=== PATIENT | male | born 1965 | race African-American/Black ===

== ENCOUNTER 2020-01-01 15:12 | Inpatient (IN) | payer SELFPAY ==
[~2020-01-01 15:12] MED LIST: Dexamethasone 20 MG/5 ML VIAL ONE; Fentanyl 250 MCG/5 ML VIAL ONE; Glycopyrrolate 0.2 MG/ML 5 ML SYRINGE ONE; Heparin 5,000 UNITS/ML VIAL ONE; Lidocaine 1% PF 5 ML VIAL ONE; Midazolam HCl 2 mg/2 ml Vial ONE; PROPOFOL 200 MG/20 ML VIAL ONE; Phenylephrine 10 MG/ML VIAL ONE; Protamine Sulfate 50 MG/5 ML VIAL ONE; Rocuronium Bromide 10 MG/ML (10ML VIAL) ONE; Succinylcholine Chloride 20 MG/ML 10 ml SYRINGE FS ONE
[2020-01-01] MEDS ORDERED: Bupivacaine HCl 0.5%/Epinephrine 1:200,000/PF 30 ml Vial ONE (15:41)
[2020-01-01] MEDS ORDERED: SUGAMMADEX SODIUM 200 MG/2 ML VIAL ONE (16:25)
[2020-01-01] MEDS ORDERED: Ondansetron HCl/PF 4 MG/2 ML Vial IVP PRN (16:38)
[2020-01-01] MEDS ORDERED: Labetalol HCl 100 MG/20 ML VIAL ONE (16:43)
[2020-01-01] MEDS ORDERED: Fentanyl 100 MCG/2 ML VIAL ONE ×2 (16:53→17:12)
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
[2020-01-01] MEDS ORDERED: HYDROcodone/Acetaminophen 5/325 mg Tablet PO PRN (18:03)
[2020-01-01] MEDS ORDERED: traMADol HCl 50 MG TAB PO PRN ×2 (18:03)
[2020-01-01] MEDS ORDERED: Fentanyl 100 MCG/2 ML VIAL SLOW IVP PRN (18:03)
[2020-01-01 18:06] VITALS: BMI 33.7
[2020-01-01] MEDS: HYDROcodone/Acetaminophen 5/325 mg Tablet PO PRN (18:24)
[2020-01-01] MEDS: Sodium Chloride 0.9% 1,000 ML IV SCH (18:26)
[2020-01-02] MEDS: Sodium Chloride 0.9% 1,000 ML IV SCH (02:08)
[2020-01-02 03:11] LABS: #Lymphocytes 0.9 thou/uL (1.20-3.40); #Neutrophils 9.5 thou/uL (1.40-6.50); %Lymphocytes 7.8 % (21.0-51.0); %Monocytes 8.8 % (0.0-10.0); %Neutrophils 83.4 % (42.0-75.0); Mean Corpuscular HGB CONC 34.1 g/dL (32.0-36.0); Mean Corpuscular Hemoglobin 31.7 pg (27.0-31.0); Mean Platelet Volume 7.3 fL (7.4-10.4); Platelet Count 248 thou/uL (130-400); RBC Distribution Width 12.6 % (11.5-14.5); Red Blood Cell (RBC) Count 4.09 mill/uL (4.70-6.10); White Blood Cell (WBC) Count 11.4 thou/uL (4.8-10.8)
[2020-01-02] MEDS: HYDROcodone/Acetaminophen 5/325 mg Tablet PO PRN (06:14)
[2020-01-02 07:14] VITALS: TEMP 97.6
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
== END 2020-01-02 08:18 | disposition home or self-care (01) | DRG 908 ==
LOC: ERS 15:12 → SDC 15:24 → CCU 18:03
PROVIDERS: ADMIT Thoracic Surgery (Cardiothoracic Vascular Surgery); ATTEND Thoracic Surgery (Cardiothoracic Vascular Surgery)
PROC: 03Q Upper Arteries, Repair (ICD-10-PCS; principal; 2020-01-01)
PROC: 05QN0ZZ Repair Left Internal Jugular Vein, Open Approach (ICD-10-PCS; 2020-01-01)
DX: S15.002A Unspecified injury of left carotid artery, initial encounter (principal); S15.302A Unspecified injury of left internal jugular vein, initial encounter; W26.9XXA Contact with unspecified sharp object(s), initial encounter
CPT/HCPCS: 36415; 71045; 85025; 96374; G0390; J0670; J0690; J1100; J1644; J2250; J2370; J2704; J2720; J3010